=== PATIENT | female | born 1950 | race Hispanic/Latino ===

== ENCOUNTER → 2017-11-06 | Outpatient (CLI) | payer OTHER ==
[~2017-11-06] MED LIST: ATOR10TA PO; CALC-1038 PO; CALCIUM PO; MAGNESIUM PO; OMEG1CAP83 PO; SOLI5 PO; VITA400C73 PO; VITAMIN B12 PO
== END | disposition home or self-care (01) ==
LOC: RAH 08:50
PROVIDERS: ATTEND Family Medicine
DX: R92.8 Other abnormal and inconclusive findings on diagnostic imaging of breast (principal); Z87.898 Personal history of other specified conditions
CPT/HCPCS: 77066

== ENCOUNTER 2018-06-04 07:45 | Observation (INO) | payer OTHER ==
[2018-06-02 15:24] VITALS: BP 133/68
[2018-06-02 15:49] LABS: BASOPHILS % (AUTO) 0.7 % (0.0-5.0); EOSINOPHILS % (AUTO) 2.4 % (0.0-8.0); HEMATOCRIT 38.2 % (36-48); LYMPHOCYTES % (AUTO) 39.3 % (21.0-51.0); MEAN CORPUSCULAR HEMOGLOBIN 29.5 pg (27.0-33.0); MEAN CORPUSCULAR HGB CONC 33.7 g/dL (32.0-36.0); MEAN CORPUSCULAR VOLUME 87.4 fL (79-99); NEUTROPHILS % (AUTO) 50.6 % (40.0-77.0); NUCLEATED RED BLOOD CELLS 0.1 % (0.0-0.19); PLATELET COUNT (AUTO) 150 K/uL (130-400); RED BLOOD CELL COUNT(AUTO) 4.37 MIL/uL (4.00-5.50); RED CELL DISTRIBUTION WIDTH 12.9 % (11.0-15.5); WHITE BLOOD COUNT (AUTO) 6.1 K/uL (4.8-10.8)
[2018-06-02 15:49] LABS: BILIRUBIN,URINE Negative (NEGATIVE); COLOR,URINE Yellow (YELLOW); GLUCOSE, URINE (UA) Negative (NEGATIVE); KETONES,URINE Negative (NEGATIVE); LEUKOCYTE ESTERASE ,URINE Negative (NEGATIVE); NITRATE,URINE Negative (NEGATIVE); OCCULT BLOOD,URINE Negative (NEGATIVE); PH,URINE 7.5 (5.0-8.0); PROTEIN,URINE Negative (NEGATIVE)
[2018-06-02 15:51] LABS: APPEARANCE,URINE CLOUDY (CLEAR)
[2018-06-02 15:57] LABS: AMORPHOUS SEDIMENT,UR Moderate /LPF (None Seen); BACTERIA,URINE Few /HPF (None Seen); RBC,URINE 0-1 /HPF (0-1); SQUAMOUS EPITHELIAL CELL,UR None Seen /HPF (0-2); WBC,URINE 0-1 /HPF (0-1)
[2018-06-02 15:58] LABS: CREATININE 0.9 mg/dL (0.5-1.5)
[2018-06-04] VITALS (32 sets, daily range): BP systolic 111–160; BP diastolic 52–76
[~2018-06-04] VITALS: Ht 147.3 cm; Wt 66.9 kg
[~2018-06-04 07:45] MED LIST changes: +AEC81 PO; +ASCO10007 PO; +B COMPLEX PO; +BIOT25008 PO; -CALC-1038 PO; +CALC-691 PO; +CALC-866 PO; -CALCIUM PO; +CIDER VINEGAR PO; +CINNAMON PO; +CYANOCOBALAMIN PO; +LACTATED RINGERS 1000ML 1,000 ML IV SCH; -MAGNESIUM PO; -OMEG1CAP83 PO; +TURMERIC CURCUMIN PO; +UBID100C4 PO; -VITA400C73 PO; -VITAMIN B12 PO; +[UNRECOGNIZED DRUG - OTHER] PO
[2018-06-04] MEDS ORDERED: DEXAMETHASONE SOD PHOSPHATE 10MG/ML 1ML VIAL ONE (10:02)
[2018-06-04] MEDS ORDERED: ONDANSETRON HCL 4 MG/2 ML VIAL ONE (10:02)
[2018-06-04] MEDS ORDERED: SUCCINYLCHOLINE 200MG/10ML SYR ONE (10:02)
[2018-06-04] MEDS ORDERED: LIDOCAINE PF 2% 5ML ABBOJECT ONE (10:02)
[2018-06-04] MEDS ORDERED: PROPOFOL 10 MG/ML 20ML VIAL IV ONE (10:03)
[2018-06-04] MEDS ORDERED: MIDAZOLAM HCL 1 MG/ML 2ML VIAL ONE (10:03)
[2018-06-04] MEDS ORDERED: NEOSTIGMINE 5MG/5ML SYR IV ONE (10:03)
[2018-06-04] MEDS ORDERED: ROCURONIUM 10MG/1ML SYR 10 MG/ML ML ONE (10:03)
[2018-06-04] MEDS ORDERED: FENTANYL CITRATE PF 50 MCG/1 ML 2ML VIAL ONE (10:04)
[2018-06-04] MEDS ORDERED: ROPIVACAINE 0.5% 5MG/ML 30ML IJ ONE (10:09)
[2018-06-04] MEDS ORDERED: EPHEDRINE SULFATE 50 MG/ML AMPULE ONE (11:07)
[2018-06-04] MEDS ORDERED: GLYCOPYRROLATE 1 MG/5 ML SYRINGE ONE (12:12)
[2018-06-04] MEDS ORDERED: LACTATED RINGERS 1000ML 1,000 ML IV SCH (12:22)
[2018-06-04] MEDS ORDERED: MORPHINE SULFATE 2 MG/ML 1ML SYG IV PRN (12:30)
[2018-06-04] MEDS ORDERED: ACETAMINOPHEN-CODEINE 300/30MG TAB PO PRN (12:30)
[2018-06-04] MEDS ORDERED: ONDANSETRON HCL 4 MG/2 ML VIAL IVP PRN (12:30)
[2018-06-04] MEDS: ACETAMINOPHEN 325 MG TAB PO PRN ×2 (17:03→22:46)
[2018-06-05] MEDS: ACETAMINOPHEN 325 MG TAB PO PRN ×2 (03:42→09:34)
[2018-06-05 03:54] VITALS: BP 129/65
[2018-06-05 08:00] VITALS: BP 122/58
[2018-06-05 12:00] VITALS: BP 104/55
== END 2018-06-05 15:04 | disposition home or self-care (01) ==
LOC: DAH 07:45 → DAHIP 07:46 → 3DH 14:09
PROVIDERS: ADMIT Surgery; ATTEND Surgery
DX: C50.912 Malignant neoplasm of unspecified site of left female breast (principal); E78.5 Hyperlipidemia, unspecified; E66.9 Obesity, unspecified; Z79.899 Other long term (current) drug therapy; Z83.3 Family history of diabetes mellitus; Z82.49 Family history of ischemic heart disease and other diseases of the circulatory system; Z80.0 Family history of malignant neoplasm of digestive organs; Z80.3 Family history of malignant neoplasm of breast
CPT/HCPCS: 19307; 36415; 80048; 81001; 85025; 88309; 93005; A4452; A4600; G0378 ×31; J0330; J1100; J2001; J2250; J2405; J2704; J2710; J2795; J3010; J3490 ×2; J7030; J7120 ×2

== ENCOUNTER 2020-12-07 05:47 | Day surgery (SDC) | payer OTHER ==
[2020-11-29 15:45] LABS: BASOPHILS % (AUTO) 0.5 % (0.0-5.0); EOSINOPHILS % (AUTO) 1.9 % (0.0-8.0); HEMATOCRIT 35.1 % (36-48); LYMPHOCYTES % (AUTO) 38.2 % (21.0-51.0); MEAN CORPUSCULAR HGB CONC 34.8 g/dL (32.0-36.0); MEAN CORPUSCULAR VOLUME 86.2 fL (79-99); MONOCYTES % (AUTO) 6.5 % (3.0-13.0); NEUTROPHILS % (AUTO) 52.6 % (40.0-77.0); PLATELET COUNT (AUTO) 174 K/uL (130-400); RED BLOOD CELL COUNT(AUTO) 4.07 MIL/uL (4.00-5.50); RED CELL DISTRIBUTION WIDTH 12.4 % (11.0-15.5); WHITE BLOOD COUNT (AUTO) 6.5 K/uL (4.8-10.8)
[2020-11-29 15:54] LABS: CREATININE 0.7 mg/dL (0.5-1.5); POTASSIUM 3.9 mmol/L (3.5-5.1)
[2020-12-06 16:29] VITALS: BP 125/67
[2020-12-07] VITALS (17 sets, daily range): BP systolic 125–166; BP diastolic 58–83
[~2020-12-07] VITALS: Ht 147.3 cm; Wt 66.2 kg
[~2020-12-07 05:47] MED LIST changes: -AEC81 PO; +ASCO100031 PO; -ASCO10007 PO; -LACTATED RINGERS 1000ML 1,000 ML IV SCH; -SOLI5 PO
[2020-12-07] MEDS ORDERED: LACTATED RINGERS 1000ML 1,000 ML IV ONE (06:35)
[2020-12-07] MEDS: CLINDAMYCIN 600 MG/D5% WATER 50 ML IV PRN ×2 (06:56→07:40)
[2020-12-07] MEDS ORDERED: LIDOCAINE HCL 2% 20ML ONE (07:08)
[2020-12-07] MEDS ORDERED: LIDOCAINE PF 2% 5ML ABBOJECT ONE (07:22)
[2020-12-07] MEDS ORDERED: FENTANYL CITRATE PF 50 MCG/1 ML 2ML VIAL ONE (07:23)
[2020-12-07] MEDS ORDERED: PROPOFOL 10 MG/ML 20ML VIAL IV ONE (07:23)
[2020-12-07] MEDS ORDERED: GLYCOPYRROLATE 1 MG/5 ML SYRINGE ONE (07:46)
[2020-12-07] MEDS ORDERED: CEFAZOLIN SODIUM 1 GM VIAL IVP ONE (08:00)
[2020-12-07] MEDS ORDERED: KETOROLAC TROMETHAMINE 30MG/ML ONE (08:10)
== END 2020-12-07 10:05 | disposition home or self-care (01) ==
LOC: DAH 05:47
PROVIDERS: ATTEND Orthopaedic Surgery
DX: M65.4 Radial styloid tenosynovitis [de Quervain] (principal); E78.5 Hyperlipidemia, unspecified; K21.9 Gastro-esophageal reflux disease without esophagitis; Z20.828 Contact with and (suspected) exposure to other viral communicable diseases; Z88.0 Allergy status to penicillin; Z88.2 Allergy status to sulfonamides; Z88.6 Allergy status to analgesic agent; Z90.710 Acquired absence of both cervix and uterus; Z79.899 Other long term (current) drug therapy
CPT/HCPCS: 25000; 36415; 80048; 85025; 93005; A4215; A4221; A4222; A4223; A4565; A4663; A4930 ×2; A6223; C9803; J1885; J2001; J2704; J3010; J3490 ×2; J7120; U0003; J1030

== ENCOUNTER 2021-01-18 06:08 | Day surgery (SDC) | payer OTHER ==
[2021-01-11 15:55] LABS: BASOPHILS % (AUTO) 0.5 % (0.0-5.0); HEMATOCRIT 34.7 % (36-48); LYMPHOCYTES % (AUTO) 32.4 % (21.0-51.0); MEAN CORPUSCULAR HGB CONC 35.2 g/dL (32.0-36.0); MEAN CORPUSCULAR VOLUME 85.3 fL (79-99); MONOCYTES % (AUTO) 7.5 % (3.0-13.0); NEUTROPHILS % (AUTO) 56.3 % (40.0-77.0); PLATELET COUNT (AUTO) 163 K/uL (130-400); RED BLOOD CELL COUNT(AUTO) 4.07 MIL/uL (4.00-5.50); RED CELL DISTRIBUTION WIDTH 12.4 % (11.0-15.5); WHITE BLOOD COUNT (AUTO) 6.4 K/uL (4.8-10.8)
[2021-01-11 16:09] LABS: CREATININE 0.7 mg/dL (0.5-1.5); POTASSIUM 4.1 mmol/L (3.5-5.1)
[2021-01-18] VITALS (16 sets, daily range): BP systolic 126–160; BP diastolic 67–82
[2021-01-18] MEDS ORDERED: CEFAZOLIN SODIUM 1 GM VIAL ONE (06:38)
[2021-01-18] MEDS ORDERED: LIDOCAINE HCL 2% 20ML ONE (06:54)
[2021-01-18] MEDS ORDERED: METHYLPREDNISOLONE SOD SUCC 40MG/ML 1ML ONE (06:54)
[2021-01-18] MEDS ORDERED: CLINDAMYCIN 600 MG/D5% WATER 50 ML IV ONE (07:13)
[2021-01-18] MEDS ORDERED: PROPOFOL 10 MG/ML 20ML VIAL IV ONE (07:44)
[2021-01-18] MEDS ORDERED: MIDAZOLAM HCL 1 MG/ML 2ML VIAL ONE (07:44)
[2021-01-18] MEDS ORDERED: SUCCINYLCHOLINE 200MG/10ML SYR ONE (07:44)
[2021-01-18] MEDS ORDERED: ONDANSETRON HCL 4 MG/2 ML VIAL ONE (07:44)
[2021-01-18] MEDS ORDERED: ROCURONIUM 10MG/1ML SYR 10 MG/ML ML ONE (07:44)
[2021-01-18] MEDS ORDERED: LIDOCAINE HCL MPF 1% 5ML VIAL ONE (07:44)
[2021-01-18] MEDS ORDERED: FENTANYL CITRATE PF 50 MCG/1 ML 2ML VIAL ONE (07:44)
== END 2021-01-18 10:05 | disposition home or self-care (01) ==
LOC: DAH 06:08
PROVIDERS: ATTEND Orthopaedic Surgery
DX: M65.4 Radial styloid tenosynovitis [de Quervain] (principal); M65.321 Trigger finger, right index finger; E66.9 Obesity, unspecified; Z88.0 Allergy status to penicillin; Z88.2 Allergy status to sulfonamides; Z68.30 Body mass index [BMI] 30.0-30.9, adult; Z20.828 Contact with and (suspected) exposure to other viral communicable diseases
CPT/HCPCS: 25000; 26055; 36415; 80048; 85025; A4215; A4221; A4222; A4223; A4649; A4663; A4930; A6260; C9803; J0330; J2250; J2405; J2704; J3010; J3490 ×2; J7120; U0003; J0690; J2920

== ENCOUNTER 2021-10-16 06:27 | Day surgery (SDC) | payer OTHER ==
[2021-10-10 16:12] LABS: BASOPHILS % (AUTO) 0.3 % (0.0-5.0); EOSINOPHILS % (AUTO) 2.5 % (0.0-8.0); HEMATOCRIT 35.1 % (36-48); LYMPHOCYTES % (AUTO) 37.1 % (21.0-51.0); MEAN CORPUSCULAR HEMOGLOBIN 29.8 pg (27.0-33.0); MEAN CORPUSCULAR HGB CONC 34.5 g/dL (32.0-36.0); MEAN CORPUSCULAR VOLUME 86.5 fL (79-99); MONOCYTES % (AUTO) 7.1 % (3.0-13.0); NEUTROPHILS % (AUTO) 52.7 % (40.0-77.0); PLATELET COUNT (AUTO) 164 K/uL (130-400); RED BLOOD CELL COUNT(AUTO) 4.06 MIL/uL (4.00-5.50); RED CELL DISTRIBUTION WIDTH 12.6 % (11.0-15.5); WHITE BLOOD COUNT (AUTO) 6.1 K/uL (4.8-10.8)
[2021-10-10 16:26] LABS: CREATININE 0.7 mg/dL (0.5-1.5); POTASSIUM 3.9 mmol/L (3.5-5.1)
[2021-10-15 08:56] VITALS: BP 135/61
[2021-10-16] VITALS (18 sets, daily range): BP systolic 115–157; BP diastolic 58–75
[~2021-10-16] VITALS: Ht 149.9 cm; Wt 66.4 kg
[2021-10-16] MEDS: CLINDAMYCIN IVPB 600MG/50ML 50 ML IV SCH ×2 (05:00→07:56)
[~2021-10-16 06:27] MED LIST changes: -ATOR10TA PO; +OMEG100033 PO; +ROSU10TA28 PO; -[UNRECOGNIZED DRUG - OTHER] PO
[2021-10-16] MEDS ORDERED: LACTATED RINGERS 1000ML 1,000 ML IV ONE (06:36)
[2021-10-16] MEDS ORDERED: LIDOCAINE HCL 1% 20 ML VIAL ONE (07:35)
[2021-10-16] MEDS ORDERED: SUCCINYLCHOLINE CHLORIDE 20 MG/ML 10 ML VIAL ONE (07:47)
[2021-10-16] MEDS ORDERED: GLYCOPYRROLATE 1 MG/5 ML SYRINGE ONE (07:47)
[2021-10-16] MEDS ORDERED: FENTANYL CITRATE PF 50 MCG/1 ML 2ML VIAL ONE (07:47)
[2021-10-16] MEDS ORDERED: NEOSTIGMINE 5MG/5ML SYR IV ONE (07:47)
[2021-10-16] MEDS ORDERED: PROPOFOL 10 MG/ML 20ML VIAL IV ONE (07:47)
[2021-10-16] MEDS ORDERED: LIDOCAINE PF 100MG/5ML (2%) SYRINGE 5ML ONE (07:47)
[2021-10-16] MEDS ORDERED: DEXAMETHASONE SOD PHOSPHATE 10MG/ML 1ML VIAL ONE (07:47)
[2021-10-16] MEDS ORDERED: MIDAZOLAM HCL 1 MG/ML 2ML VIAL ONE ×3 (07:48→08:00)
== END 2021-10-16 10:25 | disposition home or self-care (01) ==
LOC: DAH 06:27
PROVIDERS: ATTEND Orthopaedic Surgery
DX: M65.342 Trigger finger, left ring finger (principal); Z20.822 Contact with and (suspected) exposure to COVID-19; E66.9 Obesity, unspecified; Z88.8 Allergy status to other drugs, medicaments and biological substances; Z88.0 Allergy status to penicillin; Z88.1 Allergy status to other antibiotic agents; Z90.710 Acquired absence of both cervix and uterus; Z98.890 Other specified postprocedural states; Z68.30 Body mass index [BMI] 30.0-30.9, adult
CPT/HCPCS: 26055; 36415; 80048; 85025; 87635; 93005; A4215; A4221; A4222; A4223; A4649; A4663; A6223; A6260; C9803; J0330; J1100; J2001; J2250 ×3; J2704; J2710; J3010; J3490 ×2; J7120